=== PATIENT | female | born 1945 | race Caucasian/White ===

== ENCOUNTER 2018-01-21 10:04 | Day surgery (SDC) | payer OTHER ==
[~2018-01-21] VITALS: Ht 165.1 cm; Wt 68.0 kg
[2018-01-21] MEDS ORDERED: methylPREDNISolone ACETATE 40 MG/ML IU ONE (10:05)
[2018-01-21] MEDS ORDERED: IOHEXOL 300 mgI/mL, 50 mL INFUS..BTL IV ONE (10:05)
[2018-01-21] MEDS ORDERED: LIDOCAINE 2%, 20 ML MDV INJ ONE (10:05)
[2018-01-21] MEDS ORDERED: BUPIVACAINE /PF 0.25% 30 ML VIAL INJ ONE (10:05)
[2018-01-21] MEDS ORDERED: IOHEXOL 0 ML IV ONE (10:26)
[2018-01-21] MEDS ORDERED: DIPHENHYDRAMINE INJ 50 MG/ML VIAL ONE (10:28)
[2018-01-21] MEDS ORDERED: MIDAZOLAM HCL 5 MG/5 ML VIAL ONE (10:29)
[2018-01-21] MEDS ORDERED: ONDANSETRON HCL 4 MG/2 ML VIAL ONE (11:30)
[2018-01-21] MEDS ORDERED: ONDANSETRON HCL 4 MG/2 ML VIAL IVP ONE (11:45)
[2018-01-21 12:32] VITALS: BP_SYST 129
== END 2018-01-21 13:00 | disposition home or self-care (01) ==
LOC: SDS 10:04
PROVIDERS: ATTEND Internal Medicine
DX: M51.16 Intervertebral disc disorders with radiculopathy, lumbar region (principal); I10 Essential (primary) hypertension; Z79.899 Other long term (current) drug therapy; Z98.890 Other specified postprocedural states; Z82.49 Family history of ischemic heart disease and other diseases of the circulatory system; Z80.9 Family history of malignant neoplasm, unspecified; M54.5 Low back pain
CPT/HCPCS: 62323; 76000; J1030; J1200; J2001; J2250; J2405; J3490; Q9967